=== PATIENT | female | born 1960 | race Caucasian/White ===

== ENCOUNTER 2018-08-15 17:43 | Emergency (ER) | payer OTHER ==
[~2018-08-15] VITALS: Ht 152.4 cm; Wt 91.6 kg
[2018-08-15 17:53] VITALS: Ht 152.4 cm; Wt 91.6 kg
[2018-08-15 20:14] VITALS: BP 121/93
== END 2018-08-15 20:14 | disposition home or self-care (01) ==
LOC: ED 17:43
DX: N39.0 Urinary tract infection, site not specified (principal); I10 Essential (primary) hypertension; E78.00 Pure hypercholesterolemia, unspecified; Z88.6 Allergy status to analgesic agent
CPT/HCPCS: J0696